=== PATIENT | female | born 1960 | race African-American/Black ===

== ENCOUNTER 2019-06-03 13:18 | Emergency (ER) | payer BC ==
[2019-06-03 13:41] LABS: Actual Bicarbonate (HCO3a) 25.7 mEq/L (22-28); Analyzer IN Cardio ER; Base Excess (BEa) 1.3 mEq/L (-2.0 to +3.0); CO2 Tension 39.9 mmHg (35.0-45.0); Calcium, Ionized 1.35 mmol/L (1.12-1.30); Carboxyhemoglobin (COHb) 0.7 gm% (0.0-3.0); Hemoglobin (Hb) 14.9 g/dL (12.0-16.0); Potassium - ABG Lab 3.64 mmol/L (3.70-5.30); pH, Arterial 7.43 (7.35-7.45)
[2019-06-03 13:43] LABS: ALV-art Gradient 111.425 (0-20); O2 Tension (PaO2) 551.7 mmHg (80.0-100.0); Puncture Site LRA
== END 2019-06-03 14:50 | disposition home or self-care (01) ==
LOC: ERS 13:18
DX: I10 Essential (primary) hypertension (principal); Z79.899 Other long term (current) drug therapy
CPT/HCPCS: 82805